=== PATIENT | female | born 1985 | race Caucasian/White ===

== ENCOUNTER 2024-01-31 17:22 | Emergency (ER) | payer SELFPAY ==
--- NOTE | 2024-01-31 17:28 | ED.FEMALEGU ---
HPI - Female Genitourinary General Chief complaint: Urogenital-Female Stated complaint: uti symptoms Time Seen by Provider: 01/31/24 17:28 Source: patient Mode of arrival: ambulatory Limitations: no limitations History of Present Illness HPI Narrative: Patient is a 38 year old female pain since with 2 weeks of intermittent in malodorous urine. Patient finishing menstrual cycle and does report period cramping has been present. Patient has been working out and states she drinks plenty of water. Does report episode of binge drinking recently. Has had decreased urine output and mild suprapubic pain. Denies any fever, chills, nausea, vomiting, diarrhea, flank pain. Denies history of kidney stone or UTI. Does have history of PCOS. Patient has no concern for STD and has recent negative results. MD elicited complaint: dysuria Related Data Home Medications Medication Instructions Recorded Confirmed spironolactone 50 mg tablet 50 mg PO DAILY 01/31/24 01/31/24 Allergies Allergy/AdvReac Type Severity Reaction Status Date / Time No Known Allergies Allergy Verified 01/31/24 17:38 Review of Systems Review of Systems: All systems reviewed & are unremarkable except as noted in HPI and below Constitutional: Constitutional: Denies chills, Denies fever(s), Denies headache(s), Denies malaise and Denies weakness Eyes: Eyes: Denies change in vision, Denies eye discharge and Denies irritation ENT: Denies otalgia, Denies headache(s), Denies nasal congestion, Denies nasal discharge, Denies sinus pain and Denies sore throat Cardiovascular: Cardiovascular: Denies chest pain, Denies edema, Denies palpitations and Denies dyspnea Respiratory: Respiratory: Denies cough and Denies dyspnea Gastrointestinal: Gastrointestinal: Reports abdominal pain (Suprapubic), Denies diarrhea, Denies nausea and Denies vomiting Genitourinary: Genitourinary: Denies hematuria, Denies nocturia, Reports dysuria, Denies flank pain and Denies urinary urgency Musculoskeletal: Musculoskeletal: Denies back pain and Denies numbness Integumentary/Breasts: Skin/Breast: Denies pruritus and Denies rash Neurologic: Denies headache(s), Denies numbness and Denies weakness Psychiatric: Psychiatric: Reports no additional psychiatric complaints Endocrine: Endocrine: Denies palpitations PMFSH Comments At time of signature, agree with nursing past medical, surgical, social and family history. There is no relevant family history pertinent to the presenting complaint. Exam Const: General: cooperative, healthy appearing, comfortable, no acute distress and well nourished Nutritional Appearance: well nourished Orientation/consciousness: patient oriented x3 HENMT: Head: normocephalic and atraumatic Ears: external ears normal Face/Nose/Sinus: Normal external nose present, Normal nares present and normal facial exam Face and sinus: normal facial exam Eyes: General: appearance normal, both eyes and all related structures Pupils: Equal, round and reactive pupils present EOM: EOMs intact bilaterally Neck: Neck: normal visual inspection, full ROM and supple Chest: Chest palpation & inspection: normal inspection of the chest Resp: Effort & Inspection: normal respiratory effort and able to speak in complete sentences Cardio: Rate: regular rate Rhythm: regular rhythm GI: Inspection: normal to inspection GI Palp: No abdominal tenderness and Yes Soft to palpation : General: Yes no CVA tenderness Back/Spine/Pelvis: Back: no CVA tenderness Skin: General skin exam: normal color and no rashes or lesions noted Neuro: General: patient oriented x3 and moves all extremities Cranial nerves: Yes Equal, round and reactive pupils present Extrem: General: normal to inspection and full ROM Psych: Appearance: grossly normal and well kempt Course Course Emergency Course: Patient is aware of diagnosis, understands and agrees to treatment plan. Anticipatory guidance given. Kendy
[2024-01-31 17:37] VITALS: BP 152/76; PULSE 85; RESP 18; TEMP 36.2; O2SAT 100
[2024-01-31 17:39] VITALS: BP 152/76; PULSE 85; RESP 18; TEMP 36.2; O2SAT 100
== END 2024-01-31 18:01 | disposition home or self-care (01) ==
PROVIDERS: Emergency Provider Nurse Practitioner Family
DX: R30.0 Dysuria (principal); I73.00 Raynaud's syndrome without gangrene; E28.2 Polycystic ovarian syndrome
CPT/HCPCS: 81003; 99203; G0463

== ENCOUNTER 2024-02-11 12:22 | Emergency (ER) | payer SELFPAY ==
[2024-02-11] VITALS (8 sets, daily range): BP systolic 118–134; BP diastolic 83–88; PULSE 77–105; RESP 12–20; TEMP 36.9; O2SAT 98–100
--- NOTE | ~2024-02-11 | CT_ITS ---
EXAMINATION: CT abdomen pelvis w con DATE: 02/11/2024 13:33 INDICATION: Abdominal pain. Bloody diarrhea. TECHNIQUE: Computed tomography (CT) of the abdomen and pelvis was performed with 100 cc Omnipaque 350 intravenous contrast. The dose-length product was 342.10 mGy-cm. Automated exposure control and iter ative reconstruction technique were employed. COMPARISON: None. FINDINGS: Lung bases unremarkable. Heart size normal. No significant pleural or pericardial effusion. There is abnormal colonic wall thickening with mild mucosal enhancement of the descending colon, sig moid colon and rectum, consistent with colitis, most likely infectious/inflammatory. The liver, spleen, pancreas, adrenal glands and kidneys are unremarkable. Gallbladder is present. Sma ll amount of free fluid in the pelvis. IMPRESSION: 1. Mural thickening with mucosal enhancement of the descending colon, sigmoid colon and rectum, consi stent with colitis, most likely infectious or inflammatory. Reviewed, dictated and finalized at location B. IMPRESSION: 1. Mural thickening with mucosal enhancement of the descending colon, sigmoid c olon and rectum, consistent with colitis, most likely infectious or inflammator y.
--- NOTE | 2024-02-11 12:58 | ED.FEVER ---
HPI - Fever General Chief Complaint: Fever Stated Complaint: fever Time Seen by Provider: 02/11/24 12:58 History of Present Illness HPI Narrative: Patient is a 39-year-old female with history of PCOS here with fever, chills, diarrhea, nausea, blood in stool. She notes that she recently went on a trip to [place] in [place], while she was there she had been doing some drinking and thought maybe she just was not feeling well due to being hung over. She then started experiencing nausea and abdominal cramping over the last 5 days. She notes she has been taking some Pepto-Bismol which turned her stools dark in color. Today she started noticing blood in her stools, unsure if there has been clots, notes bright red blood in toilet. Her abdominal pain is cramping in nature, was initially in her upper abdomen is now located in her lower abdomen. She notes it seems to worsen prior to bowel movements. No personal or family history of IBD, colon cancer. She has never had a colonoscopy in the past. Only prior abdominal surgeries were 2 C sections. Her temperature at home has been as high as 102 F. she did take some ibuprofen about a 1/2 hour prior to presentation. She notes some chest congestion however she has seasonal allergies and believes it is likely related to that. No sick contacts, no recent antibiotic use. No blood thinner use. She notes she has only been taking ibuprofen over the last 2 days, does not use it in excess at baseline. Related Data Home Medications Medication Instructions Recorded Confirmed spironolactone 50 mg tablet 50 mg PO DAILY 01/31/24 01/31/24 Allergies Allergy/AdvReac Type Severity Reaction Status Date / Time No Known Allergies Allergy Verified 02/11/24 12:23 Review of Systems Review of Systems: All systems reviewed & are unremarkable except as noted in HPI and below Exam Narrative: GENERAL: Well-appearing, well-nourished, and in no acute distress. HEAD: Normocephalic, atraumatic. EYES: PERRLA and EOMI. ENT: Nares clear. Mucous membranes moist. NECK: Supple. CHEST: Clear to auscultation. No respiratory distress. HEART: Tachycardic. Normal peripheral pulses. ABDOMEN: Soft, mild diffuse tenderness, no rebound or guarding, nondistended. EXTREMITIES: Normal range of motion. No edema. SKIN: Warm, dry, no rash. NEURO: No focal deficits. Alert and oriented x3. PSYCH: Normal mood and affect. Course Vital Signs Vital signs: Vital Signs Temperature 98.4 F 02/11/24 12:28 Pulse Rate 105 H 02/11/24 12:28 Respiratory Rate 20 02/11/24 12:28 Blood Pressure 134/87 02/11/24 12:28 Pulse Oximetry 98 02/11/24 12:28 Oxygen Delivery Room Air 02/11/24 12:28 Temperature 98.4 F 02/11/24 12:28 Pulse Rate 89 02/11/24 16:17 Respiratory Rate 17 02/11/24 16:17 Blood Pressure 131/87 02/11/24 16:17 Pulse Oximetry 100 02/11/24 16:17 Oxygen Delivery Room Air 02/11/24 12:28 MDM - Fever MDM Narrative Medical decision making narrative: Chart review performed, here with fever, GI upset, N, V for 2-5 days, fever 102.6F at home, has had bright red blood in stool. Bedside test negative. One prior visit in our system for dysuria, negative workup for UTI. No antibiotics initiated in that visit. Patient seen evaluated, nontoxic appearing. Alert, oriented. She does have some mild abdominal tenderness with the bloody diarrhea and fevers at home. Will do CT abdomen pelvis to evaluate for possible infectious process including diverticulitis, colitis, less likely appendicitis. Morphine, Zofran, IV fluids ordered. COVID, Influenza, RSV, Lactic and blood cultures added on. Patient revealed workup and plan. Lab work and imaging reviewed. CBC unremarkable. CMP grossly normal. COVID, Influenza, RSV negative. UA inconclusive for UTI. CT shows mural thickening with mucosal enhancement of descending colon, sigmoid colon and rectum consistent with colitis. Will start on cipro
[2024-02-11 13:03] LABS: Appearance Urine Cloudy (Clear); Bacteria Urine Rare /hpf; Bilirubin Urine Negative (Negative); Blood Urine 3+ (Negative); Color Urine Yellow (Yellow); Glucose Urine UA Negative (Negative); Ketones Urine Negative (Negative); Leukocyte Esterase Ur Negative LEU/UL (Negative); Nitrate Urine Negative (Negative); Protein Urine 1+ mg/dL (Negative); RBC Urine 21-50 /hpf (0-2); Specific Grav Ur 1.022 (1.001-1.035); Squamous Epithelial Cell Urine Moderate /hpf (Few); Urobilinogen Urine 0.2 mg/dL (<2.0); pH Urine 5.5 (5.0-9.0)
[2024-02-11 13:05] LABS: Add Urine Microscopic? YES
[2024-02-11 13:08] LABS: Basophils Percent Auto 0.2 % (0.2-1.2); Hematocrit 45.1 % (37.0-47.0); Hemoglobin 15.3 g/dL (12.0-15.0); Immature Granulocyte Absolute 0.03 K/mm3 (0.00-0.031); Immature Granulocyte Percent A 0.3 % (0-0.5); Lymphocytes Absolute Auto 0.89 K/mm3 (0.9-3.2); Lymphocytes Percent Auto 9.5 % (18.3-44.2); Mean Corpuscular HGB Conc 33.9 g/dl (32-36); Mean Corpuscular Hemoglobin 31.1 pg (26-34); Mean Corpuscular Volume 91.7 fl (80-100); Mean Platelet Volume 10.1 fl (7.4-10.4); Monocytes Absolute Auto 0.5 K/mm3 (0.1-0.6); Monocytes Percent Auto 5.8 % (2.6-8.5); Neutrophils Absolute Auto 7.9 K/mm3 (1.3-6.7); Neutrophils Percent Auto 84.2 % (45.5-73.1); Platelet Count Result 205 k/mm3 (150-375); Red Blood Count 4.92 M/mm3 (4.2-5.4); Red Cell Distribution Width 12.4 % (11.5-14.5); White Blood Count 9.4 K/mm3 (4.5-10.0)
[2024-02-11 13:19] LABS: Alanine Aminotransferase 15 U/L (6-35); Albumin Level 4.8 g/dL (3.5-5.1); Alkaline Phosphatase 63 U/L (38-126); Anion Gap 9 mmol/L (4-12); Aspartate Amino Transferase 29 U/L (14-36); Bilirubin,Total 0.6 mg/dL (0.2-1.3); Blood Urea Nitrogen 7 mg/dL (7-17); Calcium 9.3 mg/dL (8.4-10.2); Carbon Dioxide 22 mmol/L (22-30); Chloride 102 mmol/L (98-107); Estimated CRCL calculation 105 ml/min; Estimated Glomerular Filt Rate > 60; Glucose 119 mg/dL (65-110); Lipase 32 U/L (23-300); Potassium 3.8 mmol/L (3.4-5.0); Sodium 133 mmol/L (137-145)
[2024-02-11 13:47] LABS: Lactic Acid Reflex 0.8 mmol/L (0.7-2.0)
[2024-02-11] MEDS: LACTATED RINGERS 1,000 ML 999 ML IV CONT (13:49)
[2024-02-11] MEDS: ONDANSETRON INJ 4 MG/2 ML VIAL IV PUSH (13:52)
[2024-02-11] MEDS: MORPHINE SULFATE (*CRX) 4 MG/ML INJ IV PUSH (13:52)
[2024-02-11 14:08] LABS: Influenza A QL RT-PCR Negative (Negative); Influenza B QL RT-PCR Negative (Negative); RSV RNA, RT-PCR Negative (Negative); SARS-CoV-2 RNA PCR Negative (Negative)
[2024-02-11 15:58] LABS: Toxigenic C. Diff NEGATIVE (NEGATIVE)
== END 2024-02-11 16:18 | disposition home or self-care (01) ==
PROVIDERS: Preventive Medicine Aerospace Medicine; Emergency Provider Student in an Organized Health Care Education/Training Program
DX: K52.9 Noninfective gastroenteritis and colitis, unspecified (principal); Z20.822 Contact with and (suspected) exposure to COVID-19
CPT/HCPCS: 36415; 74177; 80053; 81001; 81025; 83605; 83690; 85025; 87040; 87086; 87088; 87493; 87637; 96361; 96374; 96375; 99284; J2270; J2405; J7120; Q9967

== ENCOUNTER 2025-04-16 12:48 | Emergency (ER) | payer SELFPAY ==
[2025-04-16] VITALS (7 sets, daily range): BP systolic 116–158; BP diastolic 68–102; PULSE 70–103; RESP 12–20; TEMP 36.7–37.1; O2SAT 99–100
--- NOTE | ~2025-04-16 | CT_ITS ---
CLINICAL INDICATION: Right upper quadrant pain COMPARISON: 02/11/2024 . TECHNIQUE: Multiple contiguous axial images of the abdomen and pelvis were performed following the ad ministration of with 100 mL Omnipaque-350 intravenous contrast The dose-length product (DLP) was 322.28 mGy-cm. Automated exposure control and iterative reconstruction technique were employed. FINDINGS/OBSERVATIONS: Visualized lower thorax: The bilateral lung bases are clear. The heart is of normal size, without pericardial effusion. Small hiatal hernia is present. Liver: The liver demonstrates homogeneous enhancement and is enlarged measuring 20 cm in longitudinal dimens ion. Gallbladder and biliary system: The gallbladder is only minimally distended, and otherwise unremarkable. Pancreas: The pancreas enhances homogeneously without ductal dilatation. Spleen: The spleen enhances homogeneously and is not enlarged. Kidneys: The bilateral kidneys enhance symmetrically without hydronephrosis or renal calculi. Adrenal glands: Unremarkable. Gastrointestinal tract: Fecal stasis within the colon. Colonic diverticulosis without surrounding inflammatory change. Appendix: The appendix is not definitively visualized. However, no pericecal inflammatory change is identified suggest the presence of acute appendicitis. Vasculature: Unremarkable. Lymph nodes: No pathologically enlarged or morphologically suspicious lymph nodes within the retroperitoneum or at the root of the mesentery. Pelvic structures: The bladder is only minimally distended, and otherwise unremarkable. The uterus is anteverted and retroflexed. Body wall and musculoskeletal: No significant degenerative disease within the lower thoracic or lumbosacral spine. IMPRESSION: Hepatomegaly. No acute pathology detected within the lower chest, abdomen or pelvis, as detailed above. Reviewed, dictated and finalized at location A. IMPRESSION: Hepatomegaly. No acute pathology detected within the lower chest, abdomen or pelvis, as detai led above.
--- NOTE | ~2025-04-16 | XR_ITS ---
EXAM/PROCEDURE: XR chest 2V - 04/16/2025 13:46 CDT HISTORY: 40 years old Female with shortness of breath TECHNIQUE: Two view(s) of the chest. COMPARISON: None available. FINDINGS: LUNGS/ PLEURA: No focal consolidation. No appreciable pneumothorax or large pleural effusion. HEART/ MEDIASTINUM: Heart appears normal in size. BONES: No acute osseous abnormality. OTHER: Visualized upper abdomen is unremarkable. IMPRESSION: No acute process. Reviewed, dictated and finalized at location A. IMPRESSION: No acute process.
--- NOTE | 2025-04-16 13:10 | ECG_ITS ---
Test Date: 2025-04-16 16:11:54 Measurements Intervals [place] Rate: 87 P: 65 AL: 145 QRS: -6 QRSD: 88 T: 39 QT: 342 QTc: 412 Interpretive Statements SINUS RHYTHM POSSIBLE LEFT ATRIAL ENLARGEMENT DELAYED PRECORDIAL R/S TRANSITION BORDERLINE ECG No previous ECG available for comparison Electronically Signed On 04-16-2025 16:13:47 CDT by Aquiles Marin D.O.
--- NOTE | 2025-04-16 13:14 | ED.GENADULT ---
HPI - General Adult General Chief complaint: Abdominal Pain <Aggie Lema APRN - Last Filed: 04/16/25 13:16> Stated complaint: multiple complaints <Aggie Lema APRN - Last Filed: 04/16/25 13:16> Time Seen by Provider: 04/16/25 13:10 <Aggie Lema APRN - Last Filed: 04/16/25 13:16> Focused HPI: Patient is a 40-year-old female who presents to the ER with concerns of ?liver and kidney problems.She reports she has been heavily drinking alcohol for a while and knows she needs to quit. She reports her last drink was around 8:00 p.m. last night. Patient reports she has experience withdrawals before but has never had a seizure. She denies any other pertinent medical history. Patient denies any chest pain, headache, or recent falls. GENERAL: Well-appearing, well-nourished, and in no acute distress. HEAD: Normocephalic, atraumatic. CHEST: Clear to auscultation. ?No respiratory distress. HEART: Regular rate and rhythm.? NEURO: ?Alert and oriented x3. Patient screened in triage and initial orders placed.? ?Additional care and disposition to be based upon?diagnostic testing and treatment. <Aggie Lema APRN - Last Filed: 04/16/25 13:16> History of Present Illness HPI narrative: This is a 40-year-old female with history of alcohol use disorder presenting for right upper quadrant pain. Pain is been ongoing for 3 weeks. It is a dull achy pain. It is not related to food. It is not associated with fevers, nausea vomiting or diarrhea. Patient says she drinks up to a 5th of Tequila per day. Last drink was 24 hours ago. Patient also notes that she has had urinary symptoms. Denies fevers chest pain difficulty breathing or diarrhea. <Bobo Sales MD - Last Filed: 04/16/25 19:19> Related Data Home medications: Home Medications ?Medication ?Instructions ?Recorded ?Confirmed ?Last Taken ?Type spironolactone 50 mg tablet 50 mg PO DAILY 01/31/24 01/31/24 Unknown History <Aggie Lema APRN - Last Filed: 04/16/25 13:16> Allergies/adverse reactions: Allergies Allergy/AdvReac Type Severity Reaction Status Date / Time No Known Allergies Allergy Verified 04/16/25 13:09 <Aggie Lema CROSS ENTERPRISE INTEGRATOR - Last Filed: 04/16/25 13:16> Exam Narrative: APPEARANCE: No apparent distress. Head: atraumatic. EYES: EOMI, NOSE: Atraumatic NECK: Trachea midline RESPIRATORY: No increased rate of breathing clear to auscultation CARDIOVASCULAR: RRR, no peripheral edema ABDOMINAL: Soft nontender no guarding rebound MUSCULOSKELETAl: No obvious deformities NEURO: Alert. Moving 4/4 extremities SKIN:: Warm, dry. Normal color PSYCHIATRIC: Normal affect <Bobo Sales MD - Last Filed: 04/16/25 19:19> Course Vital Signs Vital signs: Vital Signs Temperature 98.0 F 04/16/25 13:04 Pulse Rate 103 H 04/16/25 13:04 Respiratory Rate 20 04/16/25 13:04 Blood Pressure 158/102 H 04/16/25 13:04 Pulse Oximetry 100 04/16/25 13:04 Oxygen Delivery Room Air 04/16/25 13:04 Temperature 98.0 F 04/16/25 13:04 Pulse Rate 76 04/16/25 18:45 Respiratory Rate 12 04/16/25 18:45 Blood Pressure 126/86 04/16/25 17:17 Pulse Oximetry 100 04/16/25 18:45 Oxygen Delivery Room Air 04/16/25 13:04 <Aggie Lema, CROSS ENTERPRISE INTEGRATOR - Last Filed: 04/16/25 13:16> Vital Signs Temperature 98.0 F 04/16/25 13:04 Pulse Rate 103 H 04/16/25 13:04 Respiratory Rate 20 04/16/25 13:04 Blood Pressure 158/102 H 04/16/25 13:04 Pulse Oximetry 100 04/16/25 13:04 Oxygen Delivery Room Air 04/16/25 13:04 Temperature 98.0 F 04/16/25 13:04 Pulse Rate 76 04/16/25 18:45 Respiratory Rate 12 04/16/25 18:45 Blood Pressure 126/86 04/16/25 17:17 Pulse Oximetry 100 04/16/25 18:45 Oxygen Delivery Room Air 04/16/25 13:04 <Bobo Sales MD - Last Filed: 04/16/25 19:19> Medical Decision Making MDM Narrative Medical decision making narrative: -Course: 40-year-old female presenting with right upper quadrant abdominal pain. Liver enzymes within normal limits. CT abdomen pelvis showed hepatomegaly but no other findings. Urine is indicative of infection. On re-evaluation patient is resting comfortably in bed. She will be discharged on a course of Keflex for UTI. She will be in follow-up with primary care physician. Given return precautions for fevers, severe upper quadrant pain intractable nausea vomiting. Patient also given prescription for Librium to help with her alcohol withdrawal. -DDX includes but is not limited to: Alcoholic hepatitis, gallbladder disease, UTI/pyelo -Co-morbidities complicating care: Alcoholism <Bobo Sales MD - Last Filed: 04/16/25 19:19> Vital Signs Vital Signs: Vital Signs Temperature 98.0 F 04/16/25 13:04 Pulse Rate 103 H 04/16/25 13:04 Respiratory Rate 20 04/16/25 13:04 Blood Pressure 158/102 H 04/16/25 13:04 Pulse Oximetry 100 04/16/25 13:04 Oxygen Delivery Room Air 04/16/25 13:04 Temperature 98.0 F 04/16/25 13:04 Pulse Rate 76 04/16/25 18:45 Respiratory Rate 12 04/16/25 18:45 Blood Pressure 126/86 04/16/25 17:17 Pulse Oximetry 100 04/16/25 18:45 Oxygen Delivery Room Air 04/16/25 13:04 <Aggie Lema, ZULEYKA - Last Filed: 04/16/25 13:16> Vital Signs Temperature 98.0 F 04/16/25 13:04 Pulse Rate 103 H 04/16/25 13:04 Respiratory Rate 20 04/16/25 13:04 Blood Pressure 158/102 H 04/16/25 13:04 Pulse Oximetry 100 04/16/25 13:04 Oxygen Delivery Room Air 04/16/25 13:04 Temperature 98.0 F 04/16/25 13:04 Pulse Rate 76 04/16/25 18:45 Respiratory Rate 12 04/16/25 18:45 Blood Pressure 126/86 04/16/25 17:17 Pulse Oximetry 100 04/16/25 18:45 Oxygen Delivery Room Air 04/16/25 13:04 <Bobo Sales MD - Last Filed: 04/16/25 19:19> Lab Data Result diagrams: 04/16/25 16:06 04/16/25 16:06 <Aggie Lema APRN - Last Filed: 04/16/25 13:16> Labs: Lab Results 04/16/25 04/16/25 04/16/25 Range/Units 16:06 16:06 16:15 WBC 11.3 H (4.5-10.0) K/mm3 RBC 4.47 (4.2-5.4) M/mm3 Hgb 14.0 (12.0-15.0) g/dL Hct 42.0 (37.0-47.0) % MCV 94.0 (80-100) fl MCH 31.3 (26-34) pg MCHC 33.3 (32-36) g/dl RDW 12.8 (11.5-14.5) % Plt Count 341 D (150-375) k/mm3 MPV 9.5 (7.4-10.4) fl Immature Gran % (Auto) 0.3 (0-0.5) % Neut % (Auto) 62.6 (45.5-73.1) % Lymph % (Auto) 30.2 (18.3-44.2) % [place] % (Auto) 6.0 (2.6-8.5) % Eos % (Auto) 0.4 (0-4.4) % Baso % (Auto) 0.5 (0.2-1.2) % Lymph # (Auto) 3.40 H (0.9-3.2) K/mm3 [place] # (Auto) 0.7 H (0.1-0.6) K/mm3 Eos # (Auto) 0.0 (0-0.3) K/mm3 Baso # (Auto) 0.1 (0.0-0.1) K/mm3 Abs Immat Gran (auto) 0.03 (0.00-0.031) K/mm3 Absolute Neuts (auto) 7.1 H (1.3-6.7) K/mm3 Absolute Nucleated RBC 0.000 (0.0-0.012) K/mm3 Nucleated RBC % 0.0 (0.0-0.2) % PT 11.8 (11.1-14.7) Seconds INR 0.9 APTT 25.9 (22.3-36.8) Seconds Sodium 137 (137-145) mmol/L Potassium 3.8 (3.4-5.0) mmol/L Chloride 100 (98-107) mmol/L Carbon Dioxide 25 (22-30) mmol/L Anion Gap 12 (4-12) mmol/L BUN 20 H D (7-17) mg/dL Creatinine 0.62 L (0.7-1.0) mg/dL Estim Creat Clear Calc 101 ml/min Estimated GFR > 60 (59 - ) Glucose 105 (65-110) mg/dL Calcium 9.5 (8.4-10.2) mg/dL Phosphorus 3.0 (2.5-4.5) mg/dL Magnesium 2.0 Cancelled (1.6-2.3) mg/dL Total Bilirubin 0.5 (0.2-1.3) mg/dL AST 36 (14-36) U/L ALT 25 (6-35) U/L Alkaline Phosphatase 52 (38-126) U/L Total Creatine Kinase 50 (30-135) U/L Troponin I < 0.012 (0.000-0.034) ng/mL Total Protein 7.9 (6.3-8.2) g/dL Albumin 4.8 (3.5-5.1) g/dL Vitamin B12 470.0 (239-931) pg/mL Folate 11.0 (2.76->20) ng/mL Urine Color Yellow (Yellow) Urine Appearance Cloudy H (Clear) Urine pH 5.5 (5.0-9.0) Ur Specific [place] 1.031 (1.001-1.035) Urine Protein 1+ H (Negative) mg/dL Urine Glucose (UA) Negative (Negative) mg/dL Urine Ketones 3+ H (Negative) mg/dL Ur Blood (Man) 1+ H (Negative) Urine Nitrate Negative (Negative) Urine Bilirubin Negative (Negative) Urine Urobilinogen 1.0 (<2.0) mg/dL Add Ur Microanalysis Reviewed Leukocyte Esterase Rfl Negative (Negative) ZINA/UL Urine RBC 6-10 H (0-2) /hpf Urine WBC 21-50 H (0-3) /hpf Ur Squamous Epith Cells Occasional (Few) /hpf Urine Bacteria 4+ H /hpf Urine Casts 3-5 POC Urine HCG, Qual (Negative) Urine Opiates Screen Negative (Negative) Urine Methadone Screen Negative (Negative) Ur Barbiturates Screen Negative (Negative) Ur Phencyclidine Scrn Negative (Negative) Ur Amphetamine Screen Negative (Negative) U Benzodiazepines Scrn Negative (Negative) Urine Cocaine Screen Negative (Negative) U Cannabinoids Screen Negative (Negative) Ethyl Alcohol < 10 (<10) mg/dL 04/16/25 Range/Units 16:17 WBC (4.5-10.0) K/mm3 RBC (4.2-5.4) M/mm3 Hgb (12.0-15.0) g/dL Hct (37.0-47.0) % MCV (80-100) fl MCH (26-34) pg MCHC (32-36) g/dl RDW (11.5-14.5) % Plt Count (150-375) k/mm3 MPV (7.4-10.4) fl Immature Gran % (Auto) (0-0.5) % Neut % (Auto) (45.5-73.1) % Lymph % (Auto) (18.3-44.2) % [place] % (Auto) (2.6-8.5) % Eos % (Auto) (0-4.4) % Baso % (Auto) (0.2-1.2) % Lymph # (Auto) (0.9-3.2) K/mm3 [place] # (Auto) (0.1-0.6) K/mm3 Eos # (Auto) (0-0.3) K/mm3 Baso # (Auto) (0.0-0.1) K/mm3 Abs Immat Gran (auto) (0.00-0.031) K/mm3 Absolute Neuts (auto) (1.3-6.7) K/mm3 Absolute Nucleated RBC (0.0-0.012) K/mm3 Nucleated RBC % (0.0-0.2) % PT (11.1-14.7) Seconds INR APTT (22.3-36.8) Seconds Sodium (137-145) mmol/L Potassium (3.4-5.0) mmol/L Chloride (98-107) mmol/L Carbon Dioxide (22-30) mmol/L Anion Gap (4-12) mmol/L BUN (7-17) mg/dL Creatinine (0.7-1.0) mg/dL Estim Creat Clear Calc ml/min Estimated GFR (59 - ) Glucose (65-110) mg/dL Calcium (8.4-10.2) mg/dL Phosphorus (2.5-4.5) mg/dL Magnesium (1.6-2.3) mg/dL Total Bilirubin (0.2-1.3) mg/dL AST (14-36) U/L ALT (6-35) U/L Alkaline Phosphatase (38-126) U/L Total Creatine Kinase (30-135) U/L Troponin I (0.000-0.034) ng/mL Total Protein (6.3-8.2) g/dL Albumin (3.5-5.1) g/dL Vitamin B12 (239-931) pg/mL Folate (2.76->20) ng/mL Urine Color (Yellow) Urine Appearance (Clear) Urine pH (5.0-9.0) Ur Specific [place] (1.001-1.035) Urine Protein (Negative) mg/dL Urine Glucose (UA) (Negative) mg/dL Urine Ketones (Negative) mg/dL Ur Blood (Man) (Negative) Urine Nitrate (Negative) Urine Bilirubin (Negative) Urine Urobilinogen (<2.0) mg/dL Add Ur Microanalysis Leukocyte Esterase Rfl (Negative) ZINA/UL Urine RBC (0-2) /hpf Urine WBC (0-3) /hpf Ur Squamous Epith Cells (Few) /hpf Urine Bacteria /hpf Urine Casts POC Urine HCG, Qual Negative (Negative) Urine Opiates Screen (Negative) Urine Methadone Screen (Negative) Ur Barbiturates Screen (Negative) Ur Phencyclidine Scrn (Negative) Ur Amphetamine Screen (Negative) U Benzodiazepines Scrn (Negative) Urine Cocaine Screen (Negative) U Cannabinoids Screen (Negative) Ethyl Alcohol (<10) mg/dL <Aggie Lema, CROSS ENTERPRISE INTEGRATOR - Last Filed: 04/16/25 13:16> Lab Results 04/16/25 04/16/25 04/16/25 Range/Units 16:06 16:06 16:15 WBC 11.3 H (4.5-10.0) K/mm3 RBC 4.47 (4.2-5.4) M/mm3 Hgb 14.0 (12.0-15.0) g/dL Hct 42.0 (37.0-47.0) % MCV 94.0 (80-100) fl MCH 31.3 (26-34) pg MCHC 33.3 (32-36) g/dl RDW 12.8 (11.5-14.5) % Plt Count 341 D (150-375) k/mm3 MPV 9.5 (7.4-10.4) fl Immature Gran % (Auto) 0.3 (0-0.5) % Neut % (Auto) 62.6 (45.5-73.1) % Lymph % (Auto) 30.2 (18.3-44.2) % [place] % (Auto) 6.0 (2.6-8.5) % Eos % (Auto) 0.4 (0-4.4) % Baso % (Auto) 0.5 (0.2-1.2) % Lymph # (Auto) 3.40 H (0.9-3.2) K/mm3 [place] # (Auto) 0.7 H (0.1-0.6) K/mm3 Eos # (Auto) 0.0 (0-0.3) K/mm3 Baso # (Auto) 0.1 (0.0-0.1) K/mm3 Abs Immat Gran (auto) 0.03 (0.00-0.031) K/mm3 Absolute Neuts (auto) 7.1 H (1.3-6.7) K/mm3 Absolute Nucleated RBC 0.000 (0.0-0.012) K/mm3 Nucleated RBC % 0.0 (0.0-0.2) % PT 11.8 (11.1-14.7) Seconds INR 0.9 APTT 25.9 (22.3-36.8) Seconds Sodium 137 (137-145) mmol/L Potassium 3.8 (3.4-5.0) mmol/L Chloride 100 (98-107) mmol/L Carbon Dioxide 25 (22-30) mmol/L Anion Gap 12 (4-12) mmol/L BUN 20 H D (7-17) mg/dL Creatinine 0.62 L (0.7-1.0) mg/dL Estim Creat Clear Calc 101 ml/min Estimated GFR > 60 (59 - ) Glucose 105 (65-110) mg/dL Calcium 9.5 (8.4-10.2) mg/dL Phosphorus 3.0 (2.5-4.5) mg/dL Magnesium 2.0 Cancelled (1.6-2.3) mg/dL Total Bilirubin 0.5 (0.2-1.3) mg/dL AST 36 (14-36) U/L ALT 25 (6-35) U/L Alkaline Phosphatase 52 (38-126) U/L Total Creatine Kinase 50 (30-135) U/L Troponin I < 0.012 (0.000-0.034) ng/mL Total Protein 7.9 (6.3-8.2) g/dL Albumin 4.8 (3.5-5.1) g/dL Vitamin B12 470.0 (239-931) pg/mL Folate 11.0 (2.76->20) ng/mL Urine Color Yellow (Yellow) Urine Appearance Cloudy H (Clear) Urine pH 5.5 (5.0-9.0) Ur Specific [place] 1.031 (1.001-1.035) Urine Protein 1+ H (Negative) mg/dL Urine Glucose (UA) Negative (Negative) mg/dL Urine Ketones 3+ H (Negative) mg/dL Ur Blood (Man) 1+ H (Negative) Urine Nitrate Negative (Negative) Urine Bilirubin Negative (Negative) Urine Urobilinogen 1.0 (<2.0) mg/dL Add Ur Microanalysis Reviewed Leukocyte Esterase Rfl Negative (Negative) ZINA/UL Urine RBC 6-10 H (0-2) /hpf Urine WBC 21-50 H (0-3) /hpf Ur Squamous Epith Cells Occasional (Few) /hpf Urine Bacteria 4+ H /hpf Urine Casts 3-5 POC Urine HCG, Qual (Negative) Urine Opiates Screen Negative (Negative) Urine Methadone Screen Negative (Negative) Ur Barbiturates Screen Negative (Negative) Ur Phencyclidine Scrn Negative (Negative) Ur Amphetamine Screen Negative (Negative) U Benzodiazepines Scrn Negative (Negative) Urine Cocaine Screen Negative (Negative) U Cannabinoids Screen Negative (Negative) Ethyl Alcohol < 10 (<10) mg/dL 04/16/25 Range/Units 16:17 WBC (4.5-10.0) K/mm3 RBC (4.2-5.4) M/mm3 Hgb (12.0-15.0) g/dL Hct (37.0-47.0) % MCV (80-100) fl MCH (26-34) pg MCHC (32-36) g/dl RDW (11.5-14.5) % Plt Count (150-375) k/mm3 MPV (7.4-10.4) fl Immature Gran % (Auto) (0-0.5) % Neut % (Auto) (45.5-73.1) % Lymph % (Auto) (18.3-44.2) % [place] % (Auto) (2.6-8.5) % Eos % (Auto) (0-4.4) % Baso % (Auto) (0.2-1.2) % Lymph # (Auto) (0.9-3.2) K/mm3 [place] # (Auto) (0.1-0.6) K/mm3 Eos # (Auto) (0-0.3) K/mm3 Baso # (Auto) (0.0-0.1) K/mm3 Abs Immat Gran (auto) (0.00-0.031) K/mm3 Absolute Neuts (auto) (1.3-6.7) K/mm3 Absolute Nucleated RBC (0.0-0.012) K/mm3 Nucleated RBC % (0.0-0.2) % PT (11.1-14.7) Seconds INR APTT (22.3-36.8) Seconds Sodium (137-145) mmol/L Potassium (3.4-5.0) mmol/L Chloride (98-107) mmol/L Carbon Dioxide (22-30) mmol/L Anion Gap (4-12) mmol/L BUN (7-17) mg/dL Creatinine (0.7-1.0) mg/dL Estim Creat Clear Calc ml/min Estimated GFR (59 - ) Glucose (65-110) mg/dL Calcium (8.4-10.2) mg/dL Phosphorus (2.5-4.5) mg/dL Magnesium (1.6-2.3) mg/dL Total Bilirubin (0.2-1.3) mg/dL AST (14-36) U/L ALT (6-35) U/L Alkaline Phosphatase (38-126) U/L Total Creatine Kinase (30-135) U/L Troponin I (0.000-0.034) ng/mL Total Protein (6.3-8.2) g/dL Albumin (3.5-5.1) g/dL Vitamin B12 (239-931) pg/mL Folate (2.76->20) ng/mL Urine Color (Yellow) Urine Appearance (Clear) Urine pH (5.0-9.0) Ur Specific [place] (1.001-1.035) Urine Protein (Negative) mg/dL Urine Glucose (UA) (Negative) mg/dL Urine Ketones (Negative) mg/dL Ur Blood (Man) (Negative) Urine Nitrate (Negative) Urine Bilirubin (Negative) Urine Urobilinogen (<2.0) mg/dL Add Ur Microanalysis Leukocyte Esterase Rfl (Negative) ZINA/UL Urine RBC (0-2) /hpf Urine WBC (0-3) /hpf Ur Squamous Epith Cells (Few) /hpf Urine Bacteria /hpf Urine Casts POC Urine HCG, Qual Negative (Negative) Urine Opiates Screen (Negative) Urine Methadone Screen (Negative) Ur Barbiturates Screen (Negative) Ur Phencyclidine Scrn (Negative) Ur Amphetamine Screen (Negative) U Benzodiazepines Scrn (Negative) Urine Cocaine Screen (Negative) U Cannabinoids Screen (Negative) Ethyl Alcohol (<10) mg/dL <Bobo Sales MD - Last Filed: 04/16/25 19:19> Discharge Plan Discharge Clinical Impression: Abdominal pain, RUQ, ETOHism, UTI (urinary tract infection) <Aggie Lema APRN - Last Filed: 04/16/25 13:16> Patient Disposition: Home <Aggie Lema APRN - Last Filed: 04/16/25 13:16> Condition: Stable <Aggie Lema APRN - Last Filed: 04/16/25 13:16> Instructions: Antibiotic Form, Urinary Tract Infection in Women (DC), Alcohol Withdrawal (DC), Abdominal Pain (ED) <Aggie Lema APRN - Last Filed: 04/16/25 13:16> Additional Instructions: You were seen in the emergency department for abdominal pain. Your laboratory studies and CT abdomen/pelvis were reassuring without signs of acute cholecystitis or liver cirrhosis. You do have a urinary tract infection you should complete a course of Keflex. Please follow-up with the primary care physician listed below. You can use Librium for withdrawal symptoms. If you develop fevers severe right upper quadrant abdominal pain intractable nausea vomiting or any new or worsening symptoms return to the ED for re-evaluation. <Aggie Lema APRN - Last Filed: 04/16/25 13:16> Patient Language: Irish <Aggie Lema APRN - Last Filed: 04/16/25 13:16> Prescriptions: New cephalexin 500 mg capsule 500 mg PO Q12H Qty: 10 0RF chlordiazepoxide HCl 25 mg capsule 25 mg PO TID PRN (Reason: alcohol withdrawal) Qty: 20 0RF No Action spironolactone 50 mg Tablet 50 mg PO DAILY ciprofloxacin HCl 500 mg tablet 500 mg PO Q12H 5 Days Qty: 10 0RF ondansetron 4 mg tablet,disintegrating 4 mg PO Q8H PRN (Reason: nausea and vomiting) Qty: 10 0RF <Aggie Lema APRN - Last Filed: 04/16/25 13:16> Follow-up/Referrals: UNKNOWN,DOCTOR [Non-Staff] - <Aggie Lema APRN - Last Filed: 04/16/25 13:16>
[2025-04-16 16:18] LABS: BEDSIDEPREGUCG Negative (Negative)
[2025-04-16 16:25] LABS: Basophils Absolute Auto 0.1 K/mm3 (0.0-0.1); Basophils Percent Auto 0.5 % (0.2-1.2); Eosinophils Percent Auto 0.4 % (0-4.4); Immature Granulocyte Absolute 0.03 K/mm3 (0.00-0.031); Immature Granulocyte Percent A 0.3 % (0-0.5); Lymphocytes Percent Auto 30.2 % (18.3-44.2); Mean Corpuscular HGB Conc 33.3 g/dl (32-36); Mean Corpuscular Hemoglobin 31.3 pg (26-34); Mean Platelet Volume 9.5 fl (7.4-10.4); Monocytes Absolute Auto 0.7 K/mm3 (0.1-0.6); Neutrophils Absolute Auto 7.1 K/mm3 (1.3-6.7); Neutrophils Percent Auto 62.6 % (45.5-73.1); Platelet Count Result 341 k/mm3 (150-375); Red Blood Count 4.47 M/mm3 (4.2-5.4); Red Cell Distribution Width 12.8 % (11.5-14.5); White Blood Count 11.3 K/mm3 (4.5-10.0)
[2025-04-16 16:36] LABS: INR 0.9; Prothrombin Time 11.8 Seconds (11.1-14.7)
[2025-04-16 16:37] LABS: Partial Thromboplastin Time 25.9 Seconds (22.3-36.8)
[2025-04-16 16:41] LABS: Ethanol < 10 mg/dL (<10)
[2025-04-16 16:43] LABS: Amphetamine Screen Urine Negative (Negative); Barbiturate Screen Urine Negative (Negative); Benzodiazepines Screen Urine Negative (Negative); Cannabinoid Screen Urine Negative (Negative); Cocaine Screen Urine Negative (Negative); Methadone Screen Urine Negative (Negative); Opiate Screen Urine Negative (Negative); Phencyclidine Screen Urine Negative (Negative)
[2025-04-16 17:02] LABS: Add Urine Microscopic? YES; Appearance Urine Cloudy (Clear); Bacteria Urine 4+ /hpf; Bilirubin Urine Negative (Negative); Blood Urine 1+ (Negative); Color Urine Yellow (Yellow); Glucose Urine UA Negative (Negative); Ketones Urine 3+ mg/dL (Negative); Leukocyte Esterase Ur Negative LEU/UL (Negative); Need Manual Microscopic Reviewed; Nitrate Urine Negative (Negative); Protein Urine 1+ mg/dL (Negative); Specific Grav Ur 1.031 (1.001-1.035); Squamous Epithelial Cell Urine Occasional /hpf (Few); WBC Urine 21-50 /hpf (0-3); pH Urine 5.5 (5.0-9.0)
[2025-04-16 17:53] LABS: Alanine Aminotransferase 25 U/L (6-35); Albumin Level 4.8 g/dL (3.5-5.1); Alkaline Phosphatase 52 U/L (38-126); Anion Gap 12 mmol/L (4-12); Aspartate Amino Transferase 36 U/L (14-36); Bilirubin,Total 0.5 mg/dL (0.2-1.3); Blood Urea Nitrogen 20 mg/dL (7-17); Calcium 9.5 mg/dL (8.4-10.2); Carbon Dioxide 25 mmol/L (22-30); Chloride 100 mmol/L (98-107); Creatine Kinase 50 U/L (30-135); Estimated CRCL calculation 101 ml/min; Estimated Glomerular Filt Rate > 60; Glucose 105 mg/dL (65-110); Potassium 3.8 mmol/L (3.4-5.0); Sodium 137 mmol/L (137-145); Total Protein 7.9 g/dL (6.3-8.2)
[2025-04-16 18:05] LABS: Troponin I < 0.012 ng/mL (0.000-0.034)
== END 2025-04-16 19:29 | disposition home or self-care (01) ==
PROVIDERS: Registered Nurse; Emergency Provider Emergency Medicine
DX: N39.0 Urinary tract infection, site not specified (principal); R10.11 Right upper quadrant pain; F10.20 Alcohol dependence, uncomplicated; Y90.0 Blood alcohol level of less than 20 mg/100 ml; R94.31 Abnormal electrocardiogram [ECG] [EKG]
CPT/HCPCS: 36415; 71046; 74177; 80053; 80307; 81001; 81025; 82077; 82550; 82607; 82746; 83735; 84100; 84484; 85025; 85610; 85730; 87086; 93005; 99284; Q9967